=== PATIENT | female | born 1950 | race Two or more races ===

== ENCOUNTER 2018-06-03 21:23 | Emergency (ER) | payer OTHER ==
[~2018-06-03] VITALS: Ht 157.5 cm; Wt 54.4 kg
[2018-06-03] MEDS ORDERED: ATENOLOL25 MG (21:41)
[2018-06-03] MEDS ORDERED: XANAX2 MG (21:41)
[2018-06-04] MEDS ORDERED: ZOFRAN ODT4 MG PO (03:05)
[2018-06-04] MEDS ORDERED: PEPCID40 MG PO (03:05)
== END 2018-06-04 03:01 | disposition home or self-care (01) ==
LOC: ER 21:23
DX: K52.9 Noninfective gastroenteritis and colitis, unspecified (principal)

== ENCOUNTER → 2019-03-30 | Emergency (ER) | payer OTHER ==
[~2019-03-30] VITALS: Ht 154.9 cm; Wt 54.4 kg
[~2019-03-30] MED LIST: ATENOLOL25 MG; PEPCID40 MG PO; XANAX2 MG; ZOFRAN ODT4 MG PO
== END | disposition left against medical advice (07) ==
LOC: ER 20:50
DX: Z53.20 Procedure and treatment not carried out because of patient's decision for unspecified reasons (principal)